=== PATIENT | female | born 1950 | race Caucasian/White ===

== ENCOUNTER 2025-04-30 08:25 | Outpatient (OUT) | payer MEDICARE, OTHER, SELFPAY ==
[2025-04-30 09:14] LABS: Hematocrit 37.1 % (36.0-48.0); Hemoglobin 12.3 g/dL (12.0-16.0); Immature Granulocytes Abs Auto 0.02 10^3/uL (0.00-0.03); Immature Granulocytes Pct Auto 0.3 % (0.0-0.5); Lymphocytes Absolute Auto 2.1 10^3/uL (1.2-3.8); Mean Corpuscular HGB Conc 33.2 g/dL (29.9-35.2); Mean Corpuscular Hemoglobin 30.1 pg (26.7-34.0); Mean Corpuscular Volume 90.7 fL (81.0-99.0); Platelet Count 267 10^3/uL (150-450); Red Blood Count 4.09 10^6/uL (4.20-5.40); White Blood Count 7.6 10^3/uL (4.0-11.0)
[2025-04-30 09:45] LABS: Iron 69.0 ug/dL (50.0-170.0)
[2025-04-30 10:23] LABS: Alanine Aminotransferase 21 U/L (14-59); Albumin Globulin Ratio 0.9; Albumin Level 3.6 g/dL (3.4-5.0); Alkaline Phosphatase 56 U/L (46-116); Anion Gap 15.5; Aspartate Amino Transferase 16 U/L (15-37); Blood Urea Nitrogen 14.0 mg/dL (7.0-18.0); Calcium 9.2 mg/dL (8.5-10.1); Carbon Dioxide 26.7 mmol/L (21.0-32.0); Chloride 101 mmol/L (98-107); Cholesterol 124 mg/dL (<=200); Estimated GFR (African America >60 (>=60 mL/min/1.73m^2); Estimated GFR (Non-African Ame 56 (>=60 mL/min/1.73m^2); Free T3 2.27 pg/mL (2.18-3.98); Globulin 3.9 g/dL; Glucose 164 mg/dL (74-106); HDL Cholesterol 42 mg/dL (40-60); Potassium 4.2 mmol/L (3.5-5.1); Sodium 139 mmol/L (136-145); Thyroid Stimulating Hormone 0.949 uIU/mL (0.358-3.740); Total Protein 7.5 g/dL (6.4-8.2); Triglycerides 222 mg/dL (<=150); VLDL CHOLESTEROL 44.4 mg/dL
== END 2025-04-30 08:26 | disposition home or self-care (01) ==
LOC: LAB 08:26
PROVIDERS: PCP Nurse Practitioner Family; Visit Provider Nurse Practitioner Family
DX: E78.5 Hyperlipidemia, unspecified (principal); R73.09 Other abnormal glucose; D64.9 Anemia, unspecified; E03.9 Hypothyroidism, unspecified; E55.9 Vitamin D deficiency, unspecified; Z79.899 Other long term (current) drug therapy
CPT/HCPCS: 36415; 80053; 80061; 82306; 83036; 83525; 83540; 84436; 84443; 84481; 85025